=== PATIENT | male | born 1970 | race Caucasian/White ===

== ENCOUNTER 2022-07-25 16:21 | Emergency (ER) | payer BC, MEDICAID ==
[2022-07-25 16:27] VITALS: TEMP 97.7
[2022-07-25] MEDS ORDERED: ONDANSETRON 4 MG/2 ML VIAL IVP STA (16:37)
[2022-07-25] MEDS ORDERED: SODIUM CHLORIDE 0.9% 1,000 ML IV STA (16:37)
--- NOTE | 2022-07-25 16:37 | ED ---
Recheck HPI - General Chief Complaint: Recheck/Abnormal Lab/Rx Stated Complaint: follow up in imaging Time Seen by Provider: 07/25/22 16:34 Source: patient Mode of arrival: ambulatory Limitations: no limitations - History of Present Illness Initial Comments: This is a 52-year-old male presenting for abnormal outpatient ultrasound secondary to abdominal pain back pain. Patient's relatively symptomatic here in the ER mild nausea no vomiting is occasional back pain abdominal pain for last couple days since he primary care had outpatient ultrasound was sent to ER for evaluation. -: unknown Returns Today for: persistent/worsening pain related to initial visit Symptoms Since Prior Visit: worsening pain Associated Symptoms: none Treatments Prior to Arrival: other (0) - Related Data Home Medications Medication Instructions Recorded Confirmed Ascorbic Acid [Vitamin C] 500 mg PO DAILY 07/25/22 07/25/22 Aspirin EC [Ecotrin Low Dose] 81 mg PO DAILY 07/25/22 07/25/22 Cholecalciferol [Vitamin D3 (25 50 mcg PO DAILY 07/25/22 07/25/22 Mcg = 1000 Iu)] Cyanocobalamin (Vitamin B-12) 5,000 mcg PO DAILY 07/25/22 07/25/22 [Vitamin B-12] Empagliflozin [Jardiance] 10 mg PO DAILY 07/25/22 07/25/22 Fenofibrate,Micronized 134 mg PO DAILY 07/25/22 07/25/22 [Fenofibrate] Metoprolol Succinate (ER) [Toprol 50 mg PO DAILY 07/25/22 07/25/22 Xl] Pravastatin Sodium [Pravachol] 80 mg PO HS 07/25/22 07/25/22 hydroCHLOROthiazide [Hydrodiuril] 25 mg PO DAILY 07/25/22 07/25/22 metFORMIN HCL [Glucophage] 1,000 mg PO BID 07/25/22 07/25/22 Allergies Allergy/AdvReac Type Severity Reaction Status Date / Time No Known Allergies Allergy Verified 07/25/22 17:36 Review of Systems ROS Statement: Those systems with pertinent positive or pertinent negative responses have been documented in the HPI. ROS Other: All systems not noted in ROS Statement are negative. 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 sent in by a medical professional or institution? @ -no Did you speak to anyone other than the patient for history? @ -no Did you review nursing and triage notes? @ -agree Were old charts reviewed? @ -no Differential Diagnosis? @ -prior EKG interpreted by me (3pts min.)? @ -no X-rays interpreted by me (1pt min.)? @ -no CT interpreted by me (1pt min.)? @ -no U/S interpreted by me (1pt. min.)? @ -no What testing was considered but not performed? (CT, X-rays, U/S, labs)? Why? @ -no What meds were considered but not given? Why? @ -no Did you discuss the management of the patient with other professionals? @ -no Did you reconcile home meds? @ -no Was smoking cessation discussed for >3mins.? @ -no Was critical care preformed (if so, how long)? @ -no Were there social determinants of health that impacted care today? How? (Homelessness, low income, unemployed, alcoholism, drug addiction, transportation, low edu. Level, literacy, decrease access to med. care, fpc, rehab)? @ -no Was there de-escalation of care discussed even if they declined? (Discuss DNR or withdrawal of care, Hospice)? @ -no What co-morbidities impacted this encounter? (DM, HTN, Smoking, COPD, CAD, Cancer, CVA, Hep., AIDS, mental health diagnosis, sleep apnea, morbid obesity)? @ -no Was patient admitted / discharged? @ -dc Undiagnosed new problem with uncertain prognosis? @ -no Drug Therapy requiring intensive monitoring for toxicity (Heparin, Nitro, Insulin, Cardizem)? @ -no Were any procedures done? @ -no Diagnosis/symptom? @ -AAA Acute, or Chronic, or Acute on Chronic? @ -acute Uncomplicated (without systemic symptoms) or Complicated (systemic symptoms)? @ -no Side effects of treatment? @ -no Exacerbation, Progression, or Severe Exacerbation] @ -no Poses a threat to life or bodily function? @ -no Reevaluation #5: 07/26/22 00:35 Differential Abdominal Pain Men: Appendicitis, cholecystitis, diverticulosis, ischemic bowel, pancreatitis, hepatitis, UTI, gastroenteritis, AAA, incarcerated hernia, bowel obstruction, constipation, inflammatory bowel, hepatitis, peptic ulcer disease, splenic infarction, perforated viscus, testicular torsion, this is not meant to be an all-inclusive list Medical Decision Making - Medical Decision Making 52 male DF for evaluation of outpatient abdominal pain for ultrasound showing aneurysm. Same aneurysm is seen here in the ER with no evidence of leak or dissection. Patient will follow-up as an outpatient - Lab Data Result diagrams: 07/25/22 16:38 07/25/22 16:38 Lab Results 07/25/22 07/25/22 Range/Units 16:38 16:38 WBC 10.7 H (3.8-10.6) k/uL RBC 5.04 (4.30-5.90) m/uL Hgb 15.9 (13.0-17.5) gm/dL Hct 47.0 (39.0-53.0) % MCV 93.2 (80.0-100.0) fL MCH 31.5 (25.0-35.0) pg MCHC 33.8 (31.0-37.0) g/dL RDW 12.7 (11.5-15.5) % Plt Count 210 (150-450) k/uL MPV 7.6 Neutrophils % 67 % Lymphocytes % 25 % Monocytes % 4 % Eosinophils % 2 % Basophils % 0 % Neutrophils # 7.2 (1.3-7.7) k/uL Lymphocytes # 2.7 (1.0-4.8) k/uL Monocytes # 0.5 (0-1.0) k/uL Eosinophils # 0.2 (0-0.7) k/uL Basophils # 0.0 (0-0.2) k/uL Sodium 138 (137-145) mmol/L Potassium 3.4 L (3.5-5.1) mmol/L Chloride 99 (98-107) mmol/L Carbon Dioxide 25 (22-30) mmol/L Anion Gap 14 mmol/L BUN 15 (9-20) mg/dL Creatinine 1.08 (0.66-1.25) mg/dL Est GFR (CKD-EPI)AfAm >90 (>60 ml/min/1.73 sqM) Est GFR (CKD-EPI)NonAf 79 (>60 ml/min/1.73 sqM) Glucose 226 H (74-99) mg/dL Calcium 9.7 (8.4-10.2) mg/dL Total Bilirubin 0.7 (0.2-1.3) mg/dL AST 32 (17-59) U/L ALT 44 (4-49) U/L Alkaline Phosphatase 65 (38-126) U/L Total Protein 7.9 (6.3-8.2) g/dL Albumin 4.7 (3.5-5.0) g/dL Amylase 101 (30-110) U/L Lipase 265 (23-300) U/L - EKG Data -: EKG Interpreted by Me (EKG is sinus 86 NH 157 QRS 99 QTC 417) - Radiology Data Radiology results: report reviewed (CT head and pelvis reiterates abdominal aortic aneurysm), image reviewed Disposition Clinical Impression: Abdominal aortic aneurysm Disposition: HOME SELF-CARE Condition: Good Instructions (If sedation given, give patient instructions): Nonruptured Abdominal Aortic Aneurysm (DC) Is patient prescribed a controlled substance at d/c from ED?: No Referrals: Jaden Hart MD [STAFF PHYSICIAN] - 1-2 days Time of Disposition: 19:10
[2022-07-25] MEDS ORDERED: MORPHINE SULFATE 4 MG/ML SYRINGE IVP STA (16:39)
[2022-07-25 17:20] LABS: Basophils % (A) 0 %; Eosinophils # (A) 0.2 k/uL (0-0.7); Eosinophils % (A) 2 %; HGB 15.9 gm/dL (13.0-17.5); Lymphocytes # (A) 2.7 k/uL (1.0-4.8); Lymphocytes % (A) 25 %; MCH 31.5 pg (25.0-35.0); MCHC 33.8 g/dL (31.0-37.0); MCV 93.2 fL (80.0-100.0); Mean Platelet Volume 7.6; Monocytes # (A) 0.5 k/uL (0-1.0); Monocytes % (A) 4 %; Neutrophils # (A) 7.2 k/uL (1.3-7.7); Neutrophils % (A) 67 %; Platelet Count 210 k/uL (150-450); RBC 5.04 m/uL (4.30-5.90); RDW 12.7 % (11.5-15.5); WBC 10.7 k/uL (3.8-10.6)
[2022-07-25 17:34] LABS: ALT 44 U/L (4-49); AST 32 U/L (17-59); African American GFR (CKD) >90 (>60 ml/min/1.73 sqM); Albumin 4.7 g/dL (3.5-5.0); Alkaline Phosphatase 65 U/L (38-126); Amylase 101 U/L (30-110); Anion Gap 14 mmol/L; Blood Urea Nitrogen 15 mg/dL (9-20); Calcium 9.7 mg/dL (8.4-10.2); Carbon Dioxide 25 mmol/L (22-30); Chloride 99 mmol/L (98-107); Glucose 226 mg/dL (74-99); Lipase 265 U/L (23-300); Non-African American GFR(CKD) 79 (>60 ml/min/1.73 sqM); Potassium 3.4 mmol/L (3.5-5.1); Sodium 138 mmol/L (137-145); Total Bilirubin 0.7 mg/dL (0.2-1.3); Total Protein 7.9 g/dL (6.3-8.2)
--- NOTE | 2022-07-25 18:54 | CT ---
EXAMINATION TYPE: CT angio thor/abd pel aorta DATE OF EXAM: 07/25/2022 COMPARISON: None. HISTORY: AAA CT DLP: 1874.3 mGycm. Automated Exposure Control for Dose Reduction was Utilized. CONTRAST: CTA scan of the thorax, abdomen and pelvis is performed without and with IV Contrast, patient injecte d with 100 mL of Isovue 370. Aneurysm protocol with 3-D reconstructed images created on a independent workstation and reviewed. FINDINGS: Vascular: Noncontrast images show no suspicious hyperdense material to suggest intramural hematoma. S atisfactory enhancement of the central pulmonary arteries. There is normal three-vessel origin from a ortic arch without significant plaque or stenosis. There are 2 renal arteries seen bilaterally which is normal variant. There is patent celiac artery and SMA with narrowing approaching 50% near celiac a rtery origin. There is a patent JAMI. There is AAA up to 5.5 cm transversely axial image 212. There is significant noncalcified plaque along the posterior portion. Length of aneurysm approximate 7.0 cm c oronal image 69. No aneurysm extension into the common iliac arteries. Iliac arteries appear within n ormal limits. Femoral arteries in the groin region appear within normal limits. LUNGS: Dependent atelectasis in the bilateral lower lobes. Additional more focal groundglass opacity in the left lower lobe axial image 76 extending from the left hilar region. There is no pleural eff usion or pneumothorax seen. The tracheobronchial tree is patent. MEDIASTINUM: There are prominent but subcentimeter thoracic and bilateral hilar lymph nodes. No car diomegaly or pericardial effusion is seen. Coronary artery calcification is present which is noted m arker for underlying coronary artery disease. LIVER/GB: Liver is diffusely low dense consistent with diffuse fatty infiltration. PANCREAS: No significant abnormality is seen. SPLEEN: No significant abnormality is seen. ADRENALS: No significant abnormality is seen. KIDNEYS: No renal calculi. No suspicious masses or hydronephrosis. BOWEL: Postsurgical changes from appendectomy. GENITAL ORGANS: No gross abnormality seen. LYMPH NODES: No greater than 1cm abdominal or pelvic lymph nodes are appreciated. OSSEOUS STRUCTURES: No significant abnormality is seen. OTHER: Tiny fat containing umbilical hernia. IMPRESSION: 1. AAA up to 5.5 cm is confirmed. No suspicious retroperitoneal fluid to suggest leak. 2. Focal groundglass opacity in the left lower lobe could reflect infectious process in appropriate s etting. Correlate clinically.
[2022-07-25 19:20] VITALS: BP 115/80; PULSE 83; RESP 16
== END 2022-07-25 19:20 | disposition home or self-care (01) ==
LOC: EC 16:21
DX: I71.40 Abdominal aortic aneurysm, without rupture, unspecified (principal); I10 Essential (primary) hypertension; E78.5 Hyperlipidemia, unspecified; E11.9 Type 2 diabetes mellitus without complications; F17.200 Nicotine dependence, unspecified, uncomplicated; Z79.82 Long term (current) use of aspirin; Z79.84 Long term (current) use of oral hypoglycemic drugs; Z79.899 Other long term (current) drug therapy
CPT/HCPCS: 36415; 93005; 80053; 82150; 83690; 85025; 71275; 74174; 99284; 96360; Q9967

== ENCOUNTER → 2024-05-07 | Outpatient (CLI) | payer BC ==
--- NOTE | 2024-05-07 14:35 | CTL ---
EXAMINATION TYPE: CT Low Dose Lung DATE OF EXAM ORDERED: 05/07/2024 COMPARISON: CTA thoracoabdominal pelvis aorta 07/25/2022 CLINICAL INDICATION: Male, 54 years old with history of Z12.2 Screening; PHH, Personal hx nicotine de pendence, current smoker, 1 ppd x 20 years, no concerns, Lung cancer screening, History of Smoking/to bacco use. TECHNIQUE: Low dose computed tomography scan was performed through the chest at 1 mm thick sections a nd reconstructed images in multiple planes at 1 mm and [address] DLP: 140.[address] CTDI: 3.8 mGy Automated exposure control for dose reduction was used. CT DIAGNOSTIC QUALITY: Satisfactory FINDINGS: Nodules: Right middle lobe 4.8 mm pulmonary nodule (series 6, image 45). Right upper lobe 3.5 mm pulmonary nodule (series 6, image 18). Medial right upper lobe 3.4 mm pulmonary nodule (series 6, image 24). Peripheral right upper lobe 3 mm pulmonary nodule (series 6, image 26). These are all stable from prior CT in 2022 considered benign. No new or enlarging pulmonary nodules. LUNGS: COPD: Severity: None Fibrosis: Severity: None Lymph nodes: None Other findings: None RIGHT PLEURAL SPACE: Effusion: None Calcification: None Thickening: None Pneumothorax: None LEFT PLEURAL SPACE: Effusion: None Calcification: None Thickening: None Pneumothorax: None HEART: Heart Size: Normal Coronary Calcification: Mild Pericardial Effusion: None OTHER FINDINGS: Upper abdomen: None Bony thorax: DISH of the lower thoracic spine. Supraclavicular region: None Other: Nodule versus secretions identified within the gary anteriorly measuring up to 7 mm IMPRESSION: 1. Few stable pulmonary nodules measuring less than 5 mm dating back to 2022. Consider benign. No new or enlarging pulmonary nodules. 2. Anterior carinal 7 mm nodular opacity. Probably represents secretion however nodule is not exclude d. Consider direct visualization. CT LUNG RAD AND CT CHEST RECOMMENDATION: Lung-Rad 2 Benign Appearance or Behavior: Continue annual sc reening with LDCT in 12 months. S Modifier (other clinically significant findings): S [facility], Workstation: [email or web address], 05/07/2024 2:33 PM
== END | disposition home or self-care (01) ==
LOC: RADCTMAIN 08:31
PROVIDERS: ATTEND Family Medicine
DX: Z12.2 Encounter for screening for malignant neoplasm of respiratory organs (principal); F17.210 Nicotine dependence, cigarettes, uncomplicated; R91.8 Other nonspecific abnormal finding of lung field
CPT/HCPCS: 71271

== ENCOUNTER → 2024-06-03 | Day surgery (SDC) | payer BC ==
[2024-06-02 09:56] VITALS: BMI 24.3
[~2024-06-03] MED LIST: LACTATED RINGERS 1,000 ML IV SCH; LIDOCAINE 2% (PF) 20 MG/ML 5 ML VIAL ONE; PROPOFOL 10 MG/ML 20 ML VIAL IV ONE
[2024-06-03 10:42] VITALS: TEMP 97.5
[2024-06-03] MEDS: LACTATED RINGERS 1,000 ML IV SCH (10:42)
[2024-06-03] MEDS: IV FLUID CONTINUATION 1,000 ML IV ONE (10:42)
[2024-06-03] MEDS: LIDOCAINE 1% (10MG/ML) FOR IV START INTRADERMA PRN (10:42)
[2024-06-03 10:56] LABS: Glucose,Whole Blood 136 mg/dL (70-110)
[2024-06-03] MEDS: LIDOCAINE 2% INJ 20 MG/ML INTRATRACH ONE (11:08)
[2024-06-03 11:47] VITALS: BP 108/78; PULSE 74; RESP 14
--- NOTE | 2024-06-03 12:02 | OP ---
OPERATIVE REPORT DATE OF SERVICE : PROCEDURES PERFORMED: Bronchoscopy and bronchoalveolar lavage of the right middle lobe and left lower lobe. PREOPERATIVE DIAGNOSES: Abnormal CT of the chest raising the possibility of carinal tumor versus mucus secretions. POSTOPERATIVE DIAGNOSES: Mucus secretions, no evidence of any endobronchial tumor. No evidence of carinal tumor. ANESTHESIA USED: IV conscious sedation. DESCRIPTION OF PROCEDURE: The patient was prepared according to the bronchoscopy protocol. Brought into the bronchoscopy suite, placed in a supine position, O2 was applied via Ventimask, and a bite block was applied. We monitored his O2 saturation continuously, blood pressure was intermittently monitored, cardiac rhythm was continuously monitored. After adequate IV conscious sedation, the bronchoscope was advanced through the bite block, and advanced down to the area of the vocal cords. The vocal cords were noted to be patent. Lidocaine was applied over the vocal cords, and the bronchoscope was advanced further down. Thorough examination was done of the trachea, gary, right upper lobe, right middle lobe, right lower lobe, left upper lobe, lingula, and left lower lobe. There was evidence of some mucus secretions noted in the airways, but no evidence of any endobronchial tumor. Specifically, the gary itself was normal, and there was no evidence of any polyps or tumors. Lavage of the right middle lobe was done. Also lavage of the left lower lobe was done to culture the mucus secretions, and this was done uneventfully. Then, the bronchoscope was withdrawn out of the airways, procedure was well tolerated, no complications, pictures were taken during the procedures specifically the gary and the vocal cords. Discussed the findings with the patient's family, and the procedure had no complications. The patient to follow up with me on outpatient basis post discharge. MMODL / IJN: [id number] /
[2024-06-03 21:33] LABS: Appearance,BF Cloudy (Clear); RBC, Body Fluid 5 /UL (0-2000)
[2024-06-04 10:04] LABS: Nucleated Cells, Body Fluid 41 /UL
== END ==
LOC: ORWHC2ENDO 10:07
PROVIDERS: ATTEND Internal Medicine
DX: R91.8 Other nonspecific abnormal finding of lung field (principal); J44.9 Chronic obstructive pulmonary disease, unspecified; I10 Essential (primary) hypertension; E78.5 Hyperlipidemia, unspecified; E11.9 Type 2 diabetes mellitus without complications; K21.9 Gastro-esophageal reflux disease without esophagitis; F17.210 Nicotine dependence, cigarettes, uncomplicated; Z79.84 Long term (current) use of oral hypoglycemic drugs; Z79.899 Other long term (current) drug therapy; Z88.0 Allergy status to penicillin; Z98.890 Other specified postprocedural states
CPT/HCPCS: 88108; 88305; 89050; 87070; 87205; 87116; 87102; 87206; 31624; J2704; J2003 ×2